=== PATIENT | male | born 1990 | race Caucasian/White ===

== ENCOUNTER 2022-10-09 07:48 | Emergency (ER) | payer BC ==
[2022-10-09] MEDS ORDERED: EPINEPHrine 1 MG/1 ML Amp ONE (07:53)
[2022-10-09] MEDS ORDERED: diphenhydrAMINE 50 MG/ML SDV IVPUSH ONE (07:57)
[2022-10-09] MEDS ORDERED: Albuterol/Ipratropium 3.0-0.5 MG/3 ML Neb Soln NEB ONE (07:58)
[2022-10-09] MEDS ORDERED: EPINEPHrine 1 MG/1 ML Amp IVPUSH ONE (08:23)
[2022-10-09] MEDS ORDERED: Lactated Ringers 1,000 ML IV ONE (08:42)
[2022-10-09] MEDS ORDERED: methylPREDNISolone Sodium Succinate 125 MG/2 ML SDV IVPUSH SCH (09:00)
[2022-10-09 09:08] LABS: CARBON DIOXIDE,CO2 26.9 mmol/L (21.0-32.0); POTASSIUM,K 3.4 mmol/L (3.5-5.1)
[2022-10-09 10:03] LABS: CORONAVIRUS COVID-19 NAA NEGATIVE (NEGATIVE); INFLUENZA A NAA NEGATIVE (NEGATIVE); INFLUENZA B NAA NEGATIVE (NEGATIVE); RESPIRATORY SYNCYTIAL VIR NAA NEGATIVE (NEGATIVE)
[2022-10-09] MEDS ORDERED: Piperacillin/Tazobactam 4.5 GM in Sodium Chloride 0.9% 100 ML IV ONE (11:17)
[2022-10-09] MEDS ORDERED: Fluconazole/Normal Saline 100 MG in Premix Bag 1 BAG IV SCH (11:30)
[2022-10-09] MEDS ORDERED: VANCOmycin 2 GM/400 ML 2 GM in Premix Bag 1 BAG IV ONE (11:30)
== END 2022-10-09 13:58 ==
LOC: MW.ED 07:48
DX: K22.3 Perforation of esophagus (principal); Z20.822 Contact with and (suspected) exposure to COVID-19
CPT/HCPCS: 0241U; 36415; 70491; 71045; 71260; 80053; 83690; 83880; 84484; 85025; 85610; 85730; 87651; 93005; 96361; 96365; 96367; 96368; 96375; 99285; J0171; J1200; J1450; J2543; J2930; J3370; J7050; J7120; 93010; 99291; 99292; J7620-GY